=== PATIENT | male | born 1985 | race American Indian/Alaskan Native ===

== ENCOUNTER 2018-04-17 18:08 | Emergency (ER) | payer SELFPAY ==
[2018-04-17 19:10] LABS: Bacteria,Urine 1+ /HPF (Negative); Bilirubin,Urine NEG (Negative); Blood,Urine SM (Negative); Color,Urine Yellow (Yellow); Mucus,Urine FEW /HPF; Protein,Urine <15 mg/dL mg/dL (Negative); Urobilinogen,Urine < 2.0 mg/dL (<2.0)
[2018-04-17 19:14] LABS: Benzodiazepines Screen,Urine PRESUMPTIVE NEGATIVE; Cannabinoid Screen,Urine PRESUMPTIVE NEGATIVE; Cocaine Screen,Urine PRESUMPTIVE NEGATIVE; Methadone Screen,Urine PRESUMPTIVE NEGATIVE; Opiate Screen,Urine PRESUMPTIVE NEGATIVE
[2018-04-17] MEDS ORDERED: ATIVAN PO ONE (19:24)
--- NOTE | 2018-04-17 19:26 | Emergency Department Report ---
Chief Complaint: Neuro Symptoms/Deficit Stated Complaint: HANDS SHAKING - HPI History of Present Illness: 32-year-old male past medical history chronic alcohol use/dependence, drinks at least 1-2 6 packs of beer plus liquor per day. Patient is awake alert and oriented 3. Presents to the ED complaining of bilateral hand tremors which began overnight and have worsened throughout the day. Patient states he feels very anxious. Patient states his last alcoholic beverage was yesterday morning. Visible bilateral hand tremors. Patient is awake alert and oriented 3. Chest pain shortness of breath or palpitations. Denies previous seizure history or history of prior alcohol withdrawals. Has been drinking heavily for several years. Patient is accompanied by family member at bedside which confirms this. Patient also complaining of chronic testicular pain. Denies hematuria or increased urinary frequency. Patient is a smoker but denies any other drug use. - ROS Review of Systems: Alcohol use on a daily basis, heavy. 3 months of persistent left-sided testicular pain - Exam Vital Signs: Vital Signs 04/17/18 18:25 Temperature 98.4 F Pulse Rate 67 Respiratory 20 Rate Blood Pressure 165/108 O2 Sat by Pulse 97 Oximetry Physical Exam: Heart S1-S2 lungs clear to auscultation. Visible rest tremor in bilateral hands with associated twitching of fingers. MSE screening note: Focused history and physical exam performed. Due to findings the following was ordered: Screening Assessment/Plan/Differential Dx: Concern for alcohol withdrawal, hand tremors, chronic groin pain 1- This initial assessment/diagnostic orders/clinical plan/ treatment(s) is/are subject to change based on pt's health status, clinical progression and re- assessment by fellow clinical providers in the ED. Further treatment and workup at subsequent clinical provers discretion. Patient/guardians urged not to elope from ED as their condition may be serious if not clinically assessed and managed. 2-labs ordered including alcohol level, electrolytes, basic metabolic panel, urine drug screen 3-as patient does have some tenderness on palpation of testicles will order ultrasound of scrotum 4-will give patient one dose of Ativan. Patient to be reevaluated main ED ED Disposition for MSE Condition: Stable
[2018-04-17 19:28] LABS: Basophils # (Auto) 0.1 K/mm3 (0.0-0.1); Basophils % (Auto) 0.9 % (0.0-1.8); Eosinophils # (Auto) 0.1 K/mm3 (0.0-0.4); Eosinophils % (Auto) 1.9 % (0.0-4.3); Hematocrit 44.8 % (35.5-45.6); Hemoglobin 14.9 gm/dl (11.8-15.2); Lymphocytes # (Auto) 1.7 K/mm3 (1.2-5.4); Lymphocytes % (Auto) 22.5 % (13.4-35.0); Mean Corpuscular HGB Conc 33 % (32-34); Mean Corpuscular Hemoglobin 31 pg (28-32); Mean Corpuscular Volume 93 fl (84-94); Monocytes # (Auto) 0.5 K/mm3 (0.0-0.8); Monocytes % (Auto) 6.5 % (0.0-7.3); Platelet Count 284 K/mm3 (140-440); Red Blood Count 4.83 M/mm3 (3.65-5.03); Red Cell Distribution Width 14.1 % (13.2-15.2)
[2018-04-17 19:28] LABS: Amphetamine Screen,Urine PRESUMPTIVE POSITIVE
[2018-04-17 19:38] LABS: BUN/Creatinine Ratio 12; Blood Urea Nitrogen 12 mg/dL (9-20); Calcium 10.2 mg/dL (8.4-10.2); Hemolysis Index 4
--- NOTE | 2018-04-17 20:49 | Ultrasound Report ---
FINAL REPORT PROCEDURE: US TESTICULAR DOPPLER COMP TECHNIQUE: Real-time rangel-scale and color flow Doppler sonography in multiple planes of the scrotum, testicles, and epididymes was performed. Velocity spectral waveform analysis Doppler imaging of the arterial inflow and venous outflow of the testicles was performed with image documentation. CPT 27917 and 77471 HISTORY: testicular pain COMPARISON: No prior studies are available for comparison. FINDINGS: RIGHT TESTICLE: Size: 3.9 x 1.6 x 2 point a cm . Appearance: Normal size and echotexture . Doppler flow: Within normal limits Right epididymis: Small sub centimeter cystic lesions are noted. Otherwise unremarkable.. Hydrocele: None . LEFT TESTICLE Size: 4.0 x 2.0 x 3.2 cm . Appearance: Normal size and echotexture . Doppler flow: Within normal limits Leftepididymis: A large cyst measuring 3.3 x 1.8 x 2.9 centimeters is noted in the epididymal head.. Hydrocele: None . IMPRESSION: Cystic lesions of bilateral epididymides larger on the left. Otherwise negative study
[2018-04-17] MEDS ORDERED: ATIVAN IV ONE (21:02)
--- NOTE | 2018-04-17 21:06 | Emergency Department Report ---
HPI - General Chief Complaint: Neuro Symptoms/Deficit Time Seen by Provider: 04/17/18 20:46 - HPI HPI: Room 9 The patient is a 32-year-old male presenting with the chief complaint of "shaking." The patient has a history of heavy alcohol use drinking and at least approximately one sixpack of beer daily. The patient states his last consumption occurred at approximately noon yesterday. The patient states yesterday at approximately 16:00 he began noticing tremors. The patient also admits to intermittent bilateral testicular pain for 2 years. Patient states he 's never been evaluated for it Location: [See above] Duration: [See above] Quality: Tremors Severity: Moderate Modifying factors: [see above] Context: [see above] Mode of transportation: [not driving] ED Past Medical Hx - Past Medical History Hx Psychiatric Treatment: Yes (alcohol abuse) - Surgical History Past Surgical History?: No - Family History Family history: no significant - Social History Smoking Status: Current Every Day Smoker (1 pack per day) Substance Use Type: None (denies illicit drug use), Alcohol (sixpack daily) - Medications Home Medications: Home Medications Medication Instructions Recorded Confirmed Last Taken Type Cephalexin [Keflex] 500 mg PO Q12HR #14 cap 06/28/16 Unknown Rx Ibuprofen [Motrin 800 MG tab] 800 mg PO Q8HR PRN #25 tablet 06/28/16 Unknown Rx chlordiazePOXIDE [Librium] 25 mg PO Q8H #13 capsule 04/18/18 Unknown Rx ED Review of Systems ROS: Stated complaint: HANDS SHAKING Other details as noted in HPI Constitutional: no symptoms reported Eyes: denies: eye pain ENT: denies: throat pain Cardiovascular: denies: chest pain Gastrointestinal: denies: abdominal pain Genitourinary: testicular pain Musculoskeletal: denies: back pain Neurological: other (tremors). denies: headache Physical Exam - Physical Exam Vital Signs: Vital Signs 04/17/18 04/17/18 18:25 20:16 Temperature 98.4 F Pulse Rate 67 Respiratory 20 18 Rate Blood Pressure 165/108 O2 Sat by Pulse 97 Oximetry Physical Exam: GENERAL: The patient is well-developed well-nourished male lying on stretcher not appearing to be in acute distress. [] HEENT: Normocephalic. Atraumatic. Extraocular motions are intact. Patient has moist mucous membranes. NECK: Supple. Trachea midline CHEST/LUNGS: Clear to auscultation. There is no respiratory distress noted. HEART/CARDIOVASCULAR: Regular. There is no tachycardia. There is no gallop rub or murmur. ABDOMEN: Abdomen is soft, nontender. Patient has normal bowel sounds. There is no abdominal distention. SKIN: There is no rash. There is no edema. There is no diaphoresis. NEURO: The patient is awake, alert, and oriented. The patient is cooperative. The patient has no focal neurologic deficits. The patient has normal speech. Cranial nerves II through XII grossly intact, no drift. Mild tremors noted MUSCULOSKELETAL: There is no evidence of acute injury. ED Course Vital Signs 04/17/18 04/17/18 18:25 20:16 Temperature 98.4 F Pulse Rate 67 Respiratory 20 18 Rate Blood Pressure 165/108 O2 Sat by Pulse 97 Oximetry - Reevaluation(s) Reevaluation #1: 04/17/18 23:38 Patient resting comfortably. Denies suicidal ideation ED Medical Decision Making - Lab Data Result diagrams: 04/17/18 19:16 04/17/18 19:16 Laboratory Tests 04/17/18 04/17/18 04/17/18 18:41 19:16 19:16 WBC RBC Hgb Hct MCV MCH MCHC RDW Plt Count Lymph % (Auto) Runnels % (Auto) Eos % (Auto) Baso % (Auto) Lymph # Runnels # Eos # Baso # Seg Neutrophils % Seg Neutrophils # Sodium Potassium Chloride Carbon Dioxide Anion Gap BUN Creatinine Estimated GFR BUN/Creatinine Ratio Glucose Calcium Total Creatine Kinase Urine Color Yellow Urine Turbidity Clear Urine pH 5.0 Ur Specific Stanton 1.021 Urine Protein <15 mg/dl Urine Glucose (UA) Neg Urine Ketones 20 Urine Blood Sm Urine Nitrite Neg Urine Bilirubin Neg Urine Urobilinogen < 2.0 Ur Leukocyte Esterase Neg Urine WBC (Auto) 1.0 Urine RBC (Auto) 7.0 Urine Bacteria (Auto) 1+ Urine Mucus Few Salicylates < 0.3 L Urine Opiates Screen Urine Methadone Screen Acetaminophen < 5.0 L Ur Barbiturates Screen Ur Phencyclidine Scrn Ur Amphetamines Screen U Benzodiazepines Scrn Urine Cocaine Screen U Marijuana (THC) Screen Drugs of Abuse Note Plasma/Serum Alcohol 07/02/18 07/02/18 07/02/18 19:16 19:16 19:16 WBC 7.7 RBC 4.83 Hgb 14.9 Hct 44.8 MCV 93 MCH 31 MCHC 33 RDW 14.1 Plt Count 284 Lymph % (Auto) 22.5 Runnels % (Auto) 6.5 Eos % (Auto) 1.9 Baso % (Auto) 0.9 Lymph # 1.7 Runnels # 0.5 Eos # 0.1 Baso # 0.1 Seg Neutrophils % 68.2 Seg Neutrophils # 5.2 Sodium 139 Potassium 4.2 Chloride 97.0 L Carbon Dioxide 28 Anion Gap 18 BUN 12 Creatinine 1.0 Estimated GFR > 60 BUN/Creatinine Ratio 12 Glucose 84 Calcium 10.2 Total Creatine Kinase Urine Color Urine Turbidity Urine pH Ur Specific Stanton Urine Protein Urine Glucose (UA) Urine Ketones Urine Blood Urine Nitrite Urine Bilirubin Urine Urobilinogen Ur Leukocyte Esterase Urine WBC (Auto) Urine RBC (Auto) Urine Bacteria (Auto) Urine Mucus Salicylates Urine Opiates Screen Urine Methadone Screen Acetaminophen Ur Barbiturates Screen Ur Phencyclidine Scrn Ur Amphetamines Screen U Benzodiazepines Scrn Urine Cocaine Screen U Marijuana (THC) Screen Drugs of Abuse Note Plasma/Serum Alcohol < 0.01 04/17/18 04/17/18 19:16 Unknown WBC RBC Hgb Hct MCV MCH MCHC RDW Plt Count Lymph % (Auto) Runnels % (Auto) Eos % (Auto) Baso % (Auto) Lymph # Runnels # Eos # Baso # Seg Neutrophils % Seg Neutrophils # Sodium Potassium Chloride Carbon Dioxide Anion Gap BUN Creatinine Estimated GFR BUN/Creatinine Ratio Glucose Calcium Total Creatine Kinase 489 H Urine Color Urine Turbidity Urine pH Ur Specific Stanton Urine Protein Urine Glucose (UA) Urine Ketones Urine Blood Urine Nitrite Urine Bilirubin Urine Urobilinogen Ur Leukocyte Esterase Urine WBC (Auto) Urine RBC (Auto) Urine Bacteria (Auto) Urine Mucus Salicylates Urine Opiates Screen Presumptive negative Urine Methadone Screen Presumptive negative Acetaminophen Ur Barbiturates Screen Presumptive negative Ur Phencyclidine Scrn Presumptive negative Ur Amphetamines Screen Presumptive positive U Benzodiazepines Scrn Presumptive negative Urine Cocaine Screen Presumptive negative U Marijuana (THC) Screen Presumptive negative Drugs of Abuse Note Disclamer Plasma/Serum Alcohol - EKG Data -: EKG Interpreted by Md EKG shows normal: sinus rhythm Rate: normal - EKG Data When compared to previous EKG there are: previous EKG unavailable Interpretation: other (no ischemic changes seen) - Medical Decision Making Patient and family given referrals for outpatient alcohol detox. Importance of not consuming alcohol while taking Librium taper discussed with patient and mother. Mother verbalized understanding - Differential Diagnosis alcohol withdrawal, anxiety Critical care attestation.: If time is entered above; I have spent that time in minutes in the direct care of this critically ill patient, excluding procedure time. ED Disposition Clinical Impression: Alcohol abuse Disposition: DC-01 TO HOME OR SELFCARE Is pt being admited?: No Does the pt Need Aspirin: No Condition: Stable Instructions: Abuse of Alcohol (ED) Additional Instructions: Return to the emergency department immediately should you develop worsening symptoms, fever, inability to tolerate food or liquid or any other concerns. Prescriptions: chlordiazePOXIDE [Librium] 25 mg PO Q8H #13 capsule Referrals: PRIMARY CARE, [Primary Care Provider] - 3-5 Days [facility] [Outside] - 3-5 Days Time of Disposition: 00:22
[2018-04-17] MEDS ORDERED: VITAMIN B-1 100 MG, FOLVITE 1 MG, INFUVITE 10 ML, MAGNESIUM SULFATE 2 GM in NACL 0.9% 1... IV ONE (21:30)
[2018-04-18 01:28] VITALS: BP 150/82
== END 2018-04-18 01:27 | disposition home or self-care (01) ==
LOC: ED 18:08
DX: F10.10 Alcohol abuse, uncomplicated (principal); N50.811 Right testicular pain; N50.812 Left testicular pain; F17.200 Nicotine dependence, unspecified, uncomplicated
CPT/HCPCS: 36415; 80048; 80307; 81001; 82550; 85025; 87086; 93005; 93010; 93975; 96365; 96366; 96375; 99285; G0480; J2060; J3411; J3475; J7030; 80320

== ENCOUNTER 2018-04-28 18:46 | Emergency (ER) | payer SELFPAY ==
--- NOTE | 2018-04-28 22:20 | Cat Scan Report ---
FINAL REPORT PROCEDURE: CT head without contrast. TECHNIQUE: Computerized tomography of the head was performed without contrast material. HISTORY: Headache. COMPARISON: CT head 06/28/2016. FINDINGS: The ventricles are normal in size. The rangel matter and white matter appear normal. There are no mass lesions. There is no intracranial hemorrhage. The calvarium appears intact. There is opacification of the left mastoid air cells. The paranasal sinuses are clear as far as visualized. IMPRESSION: Normal study of the brain. Left mastoiditis.
--- NOTE | 2018-04-29 01:04 | Emergency Department Report ---
ED Headache HPI - General Chief Complaint: Headache Stated Complaint: MEDICAL CLEARENCE Time Seen by Provider: 04/29/18 00:49 Source: patient Exam Limitations: no limitations - History of Present Illness Initial Comments: This is a 32-year-old male patient that was sent from [facility] .he reports that staff sent him for CT scan of the head. He said he is there to be enrolled in a fall call program and he reported that he was having headaches today sent in here to have a CT scan of the head to make sure he does not have any problems in his head. He reports headache is one out of 10 at this time but he said it was worse when he reported to [place]. Denies any nasal congestion or runny nose. Denies any earache. Denies any shortness of breath, cough or chest pain. Denies any fever or chills. No medication taken for headache. On-and-off and he's had headache in the past. Denies any dizziness, nausea or vomiting. Denies any blurred vision. No exacerbating or alleviating factors. Denies any fall or head injury. Timing/Duration: 4-6 hours, episodic, waxing and waning Quality: mild (1/10), achy Head Injury Location: global Recent Head Trauma: no recent headache/trauma, occasional headaches Modifying Factors: improves with: other (none) Associated Symptoms: denies: confusion, fatigue, facial pain, fever/chills, flushing, loss of consciousness, nausea/vomiting, nasal congestion, numbness in legs/feet, rash, seizures, sinus infection, stiff neck, vision changes, weakness Allergies/Adverse Reactions: Allergies No Known Allergies Allergy (Unverified 06/28/16 12:23) Home Medications: Ambulatory Orders Cephalexin [Keflex] 500 mg PO Q12HR #14 cap 06/28/16 Ibuprofen [Motrin 800 MG tab] 800 mg PO Q8HR PRN #25 tablet 06/28/16 chlordiazePOXIDE [Librium] 25 mg PO Q8H #13 capsule 04/18/18 Amoxicillin/K Clav Tab [Augmentin 875 mg] 1 tab PO Q12HR 10 Days #20 tab ED Review of Systems ROS: Stated complaint: MEDICAL CLEARENCE Other details as noted in HPI Constitutional: denies: chills, fever, malaise Eyes: denies: eye pain, eye discharge, vision change ENT: denies: ear pain, throat pain, dental pain, epistaxis, congestion Respiratory: denies: cough, shortness of breath, SOB with exertion, SOB at rest , stridor, wheezing Cardiovascular: denies: chest pain, palpitations Gastrointestinal: denies: abdominal pain, nausea, vomiting Musculoskeletal: denies: back pain, joint swelling, arthralgia Skin: denies: rash, lesions Neurological: headache. denies: weakness, numbness, paresthesias, confusion, abnormal gait, vertigo ED Past Medical Hx - Past Medical History Previous Medical History?: Yes Hx Psychiatric Treatment: Yes (alcohol abuse) - Surgical History Past Surgical History?: No - Family History Family history: hypertension - Social History Smoking Status: Current Every Day Smoker Substance Use Type: Alcohol - Medications Home Medications: Home Medications Medication Instructions Recorded Confirmed Last Taken Type Cephalexin [Keflex] 500 mg PO Q12HR #14 cap 06/28/16 Unknown Rx Ibuprofen [Motrin 800 MG tab] 800 mg PO Q8HR PRN #25 tablet 06/28/16 Unknown Rx chlordiazePOXIDE [Librium] 25 mg PO Q8H #13 capsule 04/18/18 Unknown Rx Amoxicillin/K Clav Tab [Augmentin 1 tab PO Q12HR 10 Days #20 tab 04/29/18 Unknown Rx 875 mg] ED Physical Exam - General Limitations: No Limitations General appearance: alert, in no apparent distress - Head Head exam: Present: atraumatic, normocephalic, normal inspection, other (normal exam) - Expanded Head Exam Expanded Head exam: Absent: laceration, abrasion, contusion, hematoma, racoon eyes, rodriguez's sign, general tenderness, tenderness of temporal artery, CSF rhinorrhea , CSF otorrhea - Eye Eye exam: Present: normal appearance, PERRL, EOMI. Absent: nystagmus, periorbital swelling, periorbital tenderness Pupils: Present: normal accommodation - ENT ENT exam: Present: normal exam, normal orophraynx, mucous membranes moist, TM's normal bilaterally, normal external ear exam, other (no frontomaxillary sinus tenderness. No mastoid bone tenderness or erythema.) - Neck Neck exam: Present: normal inspection, full ROM, other (no C-spine tenderness). Absent: tenderness, lymphadenopathy - Respiratory Respiratory exam: Present: normal lung sounds bilaterally. Absent: respiratory distress, chest wall tenderness - Cardiovascular Cardiovascular Exam: Present: regular rate, normal rhythm, normal heart sounds. Absent: systolic murmur, diastolic murmur - Rectal Rectal exam: Present: deferred - Extremities Exam Extremities exam: Present: normal inspection, full ROM, normal capillary refill , other (living, cyanosis or edema. +2 pulses to all extremities and no neurovascular compromise). Absent: tenderness, pedal edema, joint swelling, calf tenderness - Back Exam Back exam: Present: normal inspection, full ROM, other (M plates without any difficulties). Absent: tenderness, paraspinal tenderness, vertebral tenderness - Neurological Exam Neurological exam: Present: alert, oriented X3, normal gait, reflexes normal. Absent: motor sensory deficit - Expanded Neurological Exam Expanded Neurological exam: Absent: innattentive, memory loss-remote event, memory loss- recent event, ataxia, receptive aphasia, expressive aphasia, total aphasia, tremor, protecting the airway Patient oriented to: Present: person, place, time Speech: Present: fluid speech Cranial nerves: EOM's Intact: Normal, Gag Reflex: Normal, Tongue Deviation: Normal, Nystagmus: Normal, Facial Sensation: Normal Cerebellar function: Romberg: Normal Upper motor neuron: Pronator Drift: Normal, Sensory Extinction: Normal Sensory exam: Upper Extremity Light Touch: Normal, Upper Extremity Pin Prick: Normal, Upper Extremity Temperature: Normal, UE 2 Point Discrimination: Normal, Lower Extremity Light Touch: Normal, Lower Extremity Pin Prick: Normal, Lower Extremity Temperature: Normal, LE 2 Point Discrimination: Normal Motor strength exam: RUE: 5, LUE: 5, RLE: 5, LLE: 5 Best Eye Response (Shahrzad): (4) open spontaneously Best Motor Response (Shahrzad): (6) obeys commands Best Verbal Response (Shahrzad): (5) oriented [place] Total: 15 - Psychiatric Psychiatric exam: Present: normal affect, normal mood - Skin Skin exam: Present: warm, dry, intact, normal color. Absent: rash ED Course Vital Signs 04/28/18 04/29/18 20:09 02:31 Temperature 98.2 F 98 F Pulse Rate 66 76 Respiratory 16 16 Rate Blood Pressure 138/85 Blood Pressure 122/84 [Left] O2 Sat by Pulse 98 100 Oximetry - Reevaluation(s) Reevaluation #1: 04/29/18 02:18 Patient headache has relieved since he's been emergency room without any pain medication. CT scan of the head without contrast shows left mastoiditis and no intracranial findings.Mastoiditis incidental finding on CT scan. He is asymptomatic without any mastoid bone tenderness, no earache and bilateral ear exam is normal. No fever, chills, no erythema to mastoid bones. No dizziness. ED Medical Decision Making - Radiology Data Radiology results: report reviewed CT scan of brain without contrast dictated by radiologist and report reviewed myself. See report below. Patient: JOSE BRAY MR#: [id number] : 1985 Acct:[id number] Age/Sex: 32 / M ADM Date: 04/28/18 Loc: ED Attending Dr: Ordering Physician: BUNNY RODRIGUEZ MD Date of Service: 04/28/18 Procedure(s): CT head/brain wo con Accession Number(s): [id number] cc: ED MD JENNIFER FINAL REPORT PROCEDURE: CT head without contrast. TECHNIQUE: Computerized tomography of the head was performed without contrast material. HISTORY: Headache. COMPARISON: CT head 06/28/2016. FINDINGS: The ventricles are normal in size. The rangel matter and white matter appear normal. There are no mass lesions. There is no intracranial hemorrhage. The calvarium appears intact. There is opacification of the left mastoid air cells. The paranasal sinuses are clear as far as visualized. IMPRESSION: Normal study of the brain. Left mastoiditis. Transcribed By: MRM Dictated By: MARCOS ORTEGA MD Electronically Authenticated By: MARCOS ORTEGA MD Signed Date/Time: 04/28/182214 DD/ 14 TD/TT: 04/28/182214 - Medical Decision Making This is a 32-year-old male that was sent from [facility] for CAT scan of the head before getting into rehabilitation program. He said they sent him to the hospital because he complained of headache and they wanted to be cleared before he can be admitted to the program. Patient said he was having headache when he went to [facility] now his headache has resolved. Patient was examined by myself and physical findings normal. He has normal head and neurological exam. Patient had CT scan of the head and brain without contrast which was dictated by radiologist's report reviewed by myself. CT scan with incidental finding for left mastoiditis otherwise normal. Patient has no signs or symptoms of mastoiditis. Bilateral mastoid bone nontender to palpate and bilateral EAC normal exam without any TM erythema and bilateral tragus nontender to palpate. I discussed diagnosis and CT findings with patient and he voiced understanding. Patient is medically cleared to go back to her fluid status to rehabilitation for alcohol abuse. Patient with episodic headache that is now resolved. Left mastoiditis-asymptomatic patient placed on Augmentin. He was given Rocephin 1 g IM in emergency room for cover mastoiditis. He had no adverse reaction from medication. I discussed the patient if his headache return and he needs to be treated and will need to come back to emergency room. Patient discharged home in stable condition to follow up with [facility] in 2-3 days or primary care . Follow-up with ear nose and throat in 2-3 days. Vital signs are stable, afebrile .patient has no headache while in the emergency room. Discharge to [facility] with prescription for Augmentin - Differential Diagnosis intracranial abnormality, extracranial abnormality, sinusitis, rhinitis Critical care attestation.: If time is entered above; I have spent that time in minutes in the direct care of this critically ill patient, excluding procedure time. ED Disposition Clinical Impression: Mastoiditis of left side Headache Qualifiers: Headache type: unspecified Headache chronicity pattern: episodic headache Intractability: not intractable Qualified Code(s): R51 - Headache Disposition: DC-01 TO HOME OR SELFCARE Is pt being admited?: No Does the pt Need Aspirin: No Condition: Stable Instructions: Acute Headache (ED) Additional Instructions: CT scan show incidental finding for infection of mastoid bone. Please take antibiotic as prescribed. Please follow up with ear nose and throat doctor in 3 days and also primary care physician in 2-3 days. If you do not have a primary care physician, follow up with [place] If his symptoms worsen, and she developed fever, chills, nausea vomiting, increasing headache that is not relieved with Tylenol, dizziness, blurred vision please return to emergency room. Prescriptions: Amoxicillin/K Clav Tab [Augmentin 875 mg] 1 tab PO Q12HR 10 Days #20 tab Referrals: PRIMARY CARE, [Primary Care Provider] - 2-3 Days [facility] [Outside] - 2-3 Days CAROLYNN MONTERO MD [Staff Physician] - 2-3 Days
[2018-04-29] MEDS ORDERED: ROCEPHIN IM STA (01:19)
[2018-04-29] MEDS ORDERED: XYLOCAINE 1% MPF 5 mL INFILTRATI ONE (01:19)
[2018-04-29] MEDS ORDERED: ZITHROMAX ONE (01:47)
[2018-04-29 02:32] VITALS: BP 122/84
== END 2018-04-29 02:34 | disposition home or self-care (01) ==
LOC: ED 18:46
DX: R51 Headache (principal); H70.92 Unspecified mastoiditis, left ear; F17.200 Nicotine dependence, unspecified, uncomplicated
CPT/HCPCS: 70450; 96372; 99283; J0696

== ENCOUNTER 2019-12-30 13:38 | Emergency (ER) | payer SELFPAY ==
[2019-12-30 13:44] VITALS: BP 177/111
--- NOTE | 2019-12-30 17:23 | Emergency Department Report ---
Chief Complaint: Upper Respiratory Infection Stated Complaint: COUGH/CHEST HURTS Time Seen by Provider: 12/30/19 17:18 - HPI History of Present Illness: 34 male comes in for a cough no fever times 3 days. No running nose no chest congestion. No travel, no positive covid -12 contact. PMH no. Meds none. Patient requesting a work excuse. - Exam Vital Signs: Vital Signs 12/30/19 13:40 Temperature 98.2 F Pulse Rate 76 Respiratory 18 Rate Blood Pressure 177/111 O2 Sat by Pulse 98 Oximetry Physical Exam: Axo 3 NAD non toxic chest CTAB heart RRR ambulatory without difficulties. MSE screening note: Focused history and physical exam performed. Due to findings the following was ordered: 34 male comes in for a cough no fever times 3 days. No running nose no chest congestion. No travel, no positive covid -12 contact. PMH no. Meds none. Patient is requesting work excuse. Recommend to take over the counter cough medication. Follow up with PCP. ED Disposition for MSE Disposition: MED SCREENING EXAM-LEFT Is pt being admited?: No Does the pt Need Aspirin: No Condition: Stable Additional Instructions: Recommend to take over the counter cough medication. Follow up with PCP. Referrals: CHARLENE GARCIA MD [Staff Physician] - 3-5 Days Forms: Work/School Release Form(ED)
== END 2019-12-30 17:30 | disposition left against medical advice (07) ==
LOC: ED 13:38
DX: R05 Cough (principal); R07.89 Other chest pain; Z53.21 Procedure and treatment not carried out due to patient leaving prior to being seen by health care provider
CPT/HCPCS: 99281